=== PATIENT | female | born 1970 | race Caucasian/White ===

== ENCOUNTER 2018-10-24 05:26 | Day surgery (SDC) | payer MEDICARE, MEDICAID ==
[2018-10-22 13:36] LABS: BASOPHILS % (AUTO) 0.5 % (0-1); EOSINOPHILS # (AUTO) 0.2 X10'3 (0-0.9); EOSINOPHILS % (AUTO) 2.8 % (0-6); HEMATOCRIT 34.4 % (35.0-45.0); HEMOGLOBIN 11.1 g/dl (12.0-16.0); LYMPHOCYTES # (AUTO) 1.5 X10'3 (1.1-4.8); LYMPHOCYTES % (AUTO) 17.8 % (21-51); MEAN CORPUSCULAR HEMOGLOBIN 25.2 PG (27.0-31.0); MEAN CORPUSCULAR HGB CONC 32.3 g/dL (33.0-36.5); MEAN CORPUSCULAR VOLUME 77.9 FL (78-98); MEAN PLATELET VOLUME 7.4 FL (7.4-10.4); MONOCYTES # (AUTO) 0.7 X10'3 (0-0.9); MONOCYTES % (AUTO) 7.6 % (2-12); NEUTROPHILS # (AUTO) 6.2 X10'3 (1.8-7.7); NEUTROPHILS % (AUTO) 71.3 % (42-75); PLATELET COUNT 235 X10'3 (140-440); RED BLOOD COUNT 4.42 X10'6 (4.20-5.60); RED CELL DISTRIBUTION WIDTH 20.8 % (11.5-14.5); WHITE BLOOD COUNT 8.7 X10'3 (4.5-11.0)
[2018-10-22 13:40] LABS: CLARITY,URINE CLEAR (Clear); COLOR,URINE YELLOW (Yellow); GLUCOSE, URINE NEGATIVE (Neg); KETONES,URINE NEGATIVE (Neg); LEUKOCYTE ESTERASE ,URINE NEGATIVE (Neg); NITRITES, URINE NEGATIVE (Neg); OCCULT BLOOD,URINE TRACE-INTACT (Neg); PH,URINE 5.5 (4.8-8.0); PROTEIN,URINE NEGATIVE (Neg); UROBILINOGEN,URINE 0.2 E.U/dL (0.2-1.0)
[2018-10-22 13:42] LABS: UA COLLECTION TYPE NON-SPECIFIED
[2018-10-22 13:43] LABS: ALANINE AMINOTRANSFERASE 112 U/L (12-78); ALBUMIN 3.6 G/DL (3.4-5.0); ALBUMIN/GLOBULIN RATIO 0.9 (1.1-1.5); ALKALINE PHOSPHATASE 85 IU/L (46-116); ANION GAP 8 (8-16); ASPARTATE AMINO TRANSFERASE 121 U/L (10-37); BILIRUBIN,TOTAL 0.3 MG/DL (0.1-1.0); BLOOD UREA NITROGEN 10 MG/DL (7-18); BUN/CREATININE RATIO 14.9 (6.6-38.0); CALCIUM 8.9 MG/DL (8.5-10.1); CHLORIDE 104 MMOL/L (99-107); CREATININE 0.67 MG/DL (0.40-0.90); GLUCOSE 118 MG/DL (70-104); POTASSIUM 3.8 MMOL/L (3.5-5.1); SODIUM 139 MMOL/L (135-145); TOTAL CARBON DIOXIDE 26.8 MMOL/L (24-32); TOTAL PROTEIN 7.6 G/DL (6.4-8.2); eGFR > 90 ML/MIN
[2018-10-22 13:45] LABS: HCG SERUM QL NEGATIVE
[2018-10-22 13:46] LABS: PARTIAL THROMBOPLASTIN TIME 25 SECONDS (22-32)
[2018-10-22 13:52] LABS: BACTERIA,URINE 1+ /HPF (Neg); MUCUS STRANDS MODERATE /LPF (Neg); RBC,URINE NONE SEEN /HPF (0-2); SQUAMOUS EPITHELIAL CELL,UR MODERATE /LPF (FEW); WBC,URINE 0-4 /HPF (0-4)
[2018-10-22 18:23] LABS: PLATELET ESTIMATE NORMAL
[2018-10-22 18:25] LABS: ANISOCYTOSIS 3+; MICROCYTOSIS 1+
[2018-10-22 18:26] LABS: ELLIPTOCYTES FEW
[2018-10-24] VITALS (18 sets, daily range): BP systolic 112–139; BP diastolic 57–87
[~2018-10-24] VITALS: Ht 152.4 cm; Wt 78.9 kg
[~2018-10-24 05:26] MED LIST: DEXL60CA3 PO; GABA-532 PO; LORA1TAB PO; ringers solution, lacted 1,000 ML IV SCH
[2018-10-24] MEDS ORDERED: famotidine 20mg tablet PO ONE (05:30)
[2018-10-24] MEDS ORDERED: ceFOXitin sod/dextrose 2g/50ml 50 ML IV ONE (05:30)
[2018-10-24] MEDS ORDERED: scopolamine 1.5mg patch.TD72 TD ONE (05:30)
[2018-10-24] MEDS ORDERED: BUPIVAcaine/PF 2.5mg/ml (0.25%) 10ml vial ONE ×2 (06:52→08:11)
[2018-10-24] MEDS ORDERED: epiNEPHrine 1 mg/ml inj ONE (06:52)
[2018-10-24] MEDS ORDERED: BUPIVAcaine/PF 2.5 mg/ml (0.25%) 30ml vial ONE (06:52)
[2018-10-24] MEDS ORDERED: clindamycin phosphate 40gm vag cream ONE (06:52)
[2018-10-24] MEDS ORDERED: vasoPRESSIN 20 units/ml inj. ONE (06:53)
[2018-10-24] MEDS ORDERED: neomy sulf/polymyxin B sulf. GU irrigation 1ml amp IR ONE (06:54)
[2018-10-24] MEDS ORDERED: glycopyrrolate 0.2mg/ml inj ONE (07:20)
[2018-10-24] MEDS ORDERED: neostigmine methylsulfate 1 MG/ML 10ml vial ONE (07:20)
[2018-10-24] MEDS ORDERED: ondansetron/PF 4mg/2ml inj ONE (07:20)
[2018-10-24] MEDS ORDERED: sevoflurane 250ml liquid IH ONE (07:20)
[2018-10-24] MEDS ORDERED: aprepitant 40mg capsule PO ONE (07:24)
[2018-10-24] MEDS ORDERED: fentaNYL /PF 50mcg/ml 5ml ampule ONE (07:28)
[2018-10-24] MEDS ORDERED: midazolam 2 mg/2 ml injection ONE (07:28)
[2018-10-24] MEDS ORDERED: dexamethasone sod phosphate 4mg/ml inj. ONE (07:29)
[2018-10-24] MEDS ORDERED: propofol inj 20 ML IV ONE (07:29)
[2018-10-24] MEDS ORDERED: LIDOcaine 2% (20mg/ml) 5ml vial ONE (07:29)
[2018-10-24] MEDS ORDERED: rocuronium 10mg/ml inj IV ONE ×2 (07:30→09:16)
[2018-10-24] MEDS ORDERED: ringers solution, lacted 1,000 ML IV SCH (08:37)
[2018-10-24] MEDS ORDERED: proCHLORperazine 10 MG/2 ml inj IV PRN (08:40)
[2018-10-24] MEDS ORDERED: ondansetron/PF 4mg/2ml inj IV PRN (08:40)
[2018-10-24] MEDS ORDERED: meperidine/PF 25mg/ml syringe IV PRN ×2 (08:40)
[2018-10-24] MEDS ORDERED: morphine 4 MG/ML inj SYRINge IV PRN ×2 (08:40)
[2018-10-24] MEDS ORDERED: ketorolac trometh. 30mg/ml inj. ONE (09:16)
[2018-10-24] MEDS: ringers solution, lacted 1,000 ML IV SCH ×2 (10:06→18:06)
[2018-10-24] MEDS ORDERED: metoclopramide 5 mg/ml inj IV PRN (10:10)
[2018-10-24] MEDS ORDERED: HYDROcodone/acetaminophen 10/325mg tab PO PRN (10:10)
[2018-10-24] MEDS ORDERED: diphenhydrAMINE 50 mg/ml inj IV PRN (10:10)
[2018-10-24] MEDS ORDERED: temazepam 15mg capsule PO PRN (10:10)
[2018-10-24] MEDS ORDERED: normal saline 500ml IV soln 500 ML IV PRN (10:10)
[2018-10-24] MEDS ORDERED: LORazepam 2 mg/ml vial IV PRN (10:10)
[2018-10-24] MEDS ORDERED: magnesium hydroxide 30ml (MOM) UD suspension PO PRN (10:10)
--- NOTE | 2018-10-24 10:10 | NUR ---
Received from OR via BED, accompanied by Anesthesiologist DR COYLE and report given by Anesthesiologist. PT VERY DROWSY, NO S/S OF DISTRESS/DISCOMFORT, ABDOMEN W/3 LAP SITES W/DERMABOND CDI, CORA PAD IN PLACE CDI, CHAND CATHETER TO GRAVITY DRAINAGE W/YELLOW URINE IN TUBING. Addendum: 10/24/18 at 1052 by Sophia Stewart RN Amended: Links added.
[2018-10-24] MEDS: meperidine/PF 25mg/ml syringe IV PRN ×2 (10:35→11:01)
[2018-10-24] MEDS: ketorolac trometh. 30mg/ml inj. IV PRN ×3 (10:35→23:35)
--- NOTE | 2018-10-24 11:30 | NUR ---
Report called to receiving nurse. Transferred via BED, 2 BAGS OF PERSONAL Belongings SENT W/PT TO ROOM 344B, RECEIVING RN AT BEDSIDE TO RECEIVE PT, BLL, CALL LIGHT GIVEN, SIDE RAILS UP X 2, FAMILY AT BEDSIDE. Special Issues communicated to receiving nurse. YES. Addendum: 10/24/18 at 1154 by Sophia Stewart RN Amended: Links added.
[2018-10-24] MEDS ORDERED: LORazepam 1 MG tablet PO PRN (12:00)
[2018-10-24] MEDS: HYDROcodone/acetaminophen 10/325mg tab PO PRN ×3 (12:18→22:29)
[2018-10-24] MEDS: ondansetron/PF 4mg/2ml inj IV PRN (12:26)
--- NOTE | 2018-10-24 13:50 | NUR ---
Patient was started on clear liquid diet post op, tolerated well. Patient is now asking for regular food. Patient did not want to try full liquid diet first before jumping to regular food. Patient states "Dr. Harris said I can have regular food!" Patient claimed that she already passing gas since she got here after surgery and insisted she wanted regular food. Late tray for lunch requested from the dietary. Advised patient to take it easy when she eat the regular food and to stop eating when she started being very nauseous and throw up
--- NOTE | 2018-10-24 18:49 | NUR ---
Problems reprioritized. Patient report given, questions answered & plan of care reviewed with Jessy ROCHA.
[2018-10-24] MEDS: gabapentin 300mg capsule PO SCH (19:56)
[2018-10-24] MEDS: docusate sod 100mg capsule PO SCH (19:56)
[2018-10-25] VITALS: BP 135/60
[2018-10-25] MEDS: ringers solution, lacted 1,000 ML IV SCH ×2 (02:06→10:06)
[2018-10-25] MEDS: ondansetron/PF 4mg/2ml inj IV PRN (03:05)
[2018-10-25] MEDS: HYDROcodone/acetaminophen 10/325mg tab PO PRN ×3 (03:08→12:56)
[2018-10-25 05:23] LABS: BASOPHILS % (AUTO) 0.1 % (0-1); EOSINOPHILS % (AUTO) 0 % (0-6); HEMATOCRIT 30.7 % (35.0-45.0); LYMPHOCYTES # (AUTO) 0.8 X10'3 (1.1-4.8); MEAN CORPUSCULAR HEMOGLOBIN 25.2 PG (27.0-31.0); MEAN CORPUSCULAR HGB CONC 32.5 g/dL (33.0-36.5); MEAN CORPUSCULAR VOLUME 77.5 FL (78-98); MEAN PLATELET VOLUME 7.3 FL (7.4-10.4); MONOCYTES # (AUTO) 0.7 X10'3 (0-0.9); MONOCYTES % (AUTO) 5.7 % (2-12); NEUTROPHILS # (AUTO) 11.6 X10'3 (1.8-7.7); NEUTROPHILS % (AUTO) 88.2 % (42-75); PLATELET COUNT 176 X10'3 (140-440); RED BLOOD COUNT 3.97 X10'6 (4.20-5.60); RED CELL DISTRIBUTION WIDTH 20.2 % (11.5-14.5); WHITE BLOOD COUNT 13.1 X10'3 (4.5-11.0)
[2018-10-25 05:32] LABS: ANION GAP 10 (8-16); BLOOD UREA NITROGEN 8 MG/DL (7-18); BUN/CREATININE RATIO 8.8 (6.6-38.0); CALCIUM 7.7 MG/DL (8.5-10.1); CHLORIDE 101 MMOL/L (99-107); CREATININE 0.91 MG/DL (0.40-0.90); GLUCOSE 167 MG/DL (70-104); POTASSIUM 3.9 MMOL/L (3.5-5.1); SODIUM 135 MMOL/L (135-145); eGFR 66 ML/MIN
--- NOTE | 2018-10-25 06:19 | NUR ---
Problems reprioritized. Patient report given, questions answered & plan of care reviewed with Elsy ROCHA. Addendum: 10/25/18 at 0619 by Jessy Waters RN Amended: Links added.
--- NOTE | 2018-10-25 06:57 | NUR ---
DR GRIJALVA ROUNDED. PUT IN D/C ORDERS BUT IS WAITING TO SEE HOW PT VOIDS. WILL NOT BE DISCHARGED OUT OF SYSTEM OR ROOM READY IN 2 HOURS
--- NOTE | 2018-10-25 06:57 | NUR ---
Patient in room [facility]. I have received report from halina garcia and had the opportunity to ask questions and assume patient care.
[2018-10-25 07:00] VITALS: BP 148/76
[2018-10-25] MEDS ORDERED: pantoprazole 40mg Tablet.DR PO SCH (07:30)
[2018-10-25] MEDS: enoxaparin 40mg/0.4ml syringe SQ SCH ×2 (07:46→07:59)
[2018-10-25] MEDS: gabapentin 300mg capsule PO SCH (07:47)
[2018-10-25] MEDS: docusate sod 100mg capsule PO SCH (07:47)
[2018-10-25] MEDS: ketorolac trometh. 30mg/ml inj. IV PRN (12:56)
== END 2018-10-25 13:40 | disposition home or self-care (01) ==
LOC: PAS 05:26 → SUR 3N 10:09 → PAS 10-25 13:40
PROVIDERS: ATTEND Obstetrics & Gynecology Obstetrics
DX: D25.1 Intramural leiomyoma of uterus (principal); N80.0 Endometriosis of uterus; N80.2 Endometriosis of fallopian tube; F41.9 Anxiety disorder, unspecified; D64.9 Anemia, unspecified; D32.9 Benign neoplasm of meninges, unspecified; Z79.899 Other long term (current) drug therapy; Z88.5 Allergy status to narcotic agent; Z72.89 Other problems related to lifestyle; F17.210 Nicotine dependence, cigarettes, uncomplicated
CPT/HCPCS: 36415; 58552; 71046; 80048; 80053; 81001; 82948; 84703; 85025; 85610; 85730; 86885; 86900; 86901; 87081; J0171; J0694; J1100; J1885; J2001; J2175; J2250; J2405; J2704; J3010; J3490; J7120; J8501; 88307; A4314; A4618; A7000; G0378; J1650; J2710

== ENCOUNTER 2019-03-12 09:15 | Emergency (ER) | payer MEDICARE, MEDICAID ==
[~2019-03-12] VITALS: Ht 152.4 cm; Wt 72.7 kg
[~2019-03-12 09:15] MED LIST changes: -ringers solution, lacted 1,000 ML IV SCH
[2019-03-12] MEDS ORDERED: morphine 4 MG/ML inj SYRINge IV ONE (09:30)
[2019-03-12] MEDS ORDERED: ondansetron/PF 4mg/2ml inj IV ONE ×2 (09:35→09:45)
[2019-03-12] MEDS ORDERED: normal saline 1000ML IV soln IVB ONE (09:45)
[2019-03-12] MEDS ORDERED: morphine 4 MG/ML inj SYRINge IV PRN (09:45)
[2019-03-12 09:47] LABS: BASOPHILS # (AUTO) 0.1 X10'3 (0-0.2); BASOPHILS % (AUTO) 0.8 % (0-1); EOSINOPHILS # (AUTO) 0.2 X10'3 (0-0.9); EOSINOPHILS % (AUTO) 1.8 % (0-6); HEMATOCRIT 38.8 % (35.0-45.0); HEMOGLOBIN 12.5 g/dl (12.0-16.0); LYMPHOCYTES # (AUTO) 2.3 X10'3 (1.1-4.8); LYMPHOCYTES % (AUTO) 20.7 % (21-51); MEAN CORPUSCULAR HEMOGLOBIN 23.9 PG (27.0-31.0); MEAN CORPUSCULAR HGB CONC 32.1 g/dL (33.0-36.5); MEAN CORPUSCULAR VOLUME 74.4 FL (78-98); MEAN PLATELET VOLUME 7.2 FL (7.4-10.4); MONOCYTES # (AUTO) 0.8 X10'3 (0-0.9); MONOCYTES % (AUTO) 7.2 % (2-12); NEUTROPHILS # (AUTO) 7.8 X10'3 (1.8-7.7); NEUTROPHILS % (AUTO) 69.5 % (42-75); PLATELET COUNT 238 X10'3 (140-440); RED BLOOD COUNT 5.22 X10'6 (4.20-5.60); RED CELL DISTRIBUTION WIDTH 20.8 % (11.5-14.5); WHITE BLOOD COUNT 11.2 X10'3 (4.5-11.0)
[2019-03-12] MEDS ORDERED: ketorolac trometh. 30mg/ml inj. IV ONE (09:55)
[2019-03-12 09:57] LABS: ALANINE AMINOTRANSFERASE 56 U/L (12-78); ALKALINE PHOSPHATASE 82 IU/L (46-116); ANION GAP 10 (8-16); ASPARTATE AMINO TRANSFERASE 62 U/L (10-37); BILIRUBIN,TOTAL 0.3 MG/DL (0.1-1.0); BLOOD UREA NITROGEN 9 MG/DL (7-18); BUN/CREATININE RATIO 10.6 (6.6-38.0); CALCIUM 8.7 MG/DL (8.5-10.1); CHLORIDE 104 MMOL/L (99-107); CREATININE 0.85 MG/DL (0.40-0.90); GLUCOSE 134 MG/DL (70-104); LIPASE 198 U/L (73-393); POTASSIUM 3.9 MMOL/L (3.5-5.1); SODIUM 140 MMOL/L (135-145); TOTAL CARBON DIOXIDE 25.6 MMOL/L (24-32); eGFR 71 ML/MIN
[2019-03-12] MEDS ORDERED: HYDROmorphone 1 mg/ml syringe IV ONE (10:55)
[2019-03-12 12:04] LABS: ANISOCYTOSIS 3+; MICROCYTOSIS 1+; PLATELET ESTIMATE NORMAL
[2019-03-12 12:05] LABS: POLYCHROMASIA FEW; TARGET CELLS FEW
[2019-03-12 12:06] LABS: ELLIPTOCYTES 1+; SPHEROCYTES 1+
[2019-03-12] MEDS ORDERED: proCHLORperazine 10 MG/2 ml inj IV ONE (12:20)
[2019-03-12] MEDS ORDERED: HYDR-4384 PO (12:22)
[2019-03-12] MEDS ORDERED: PROM12.512 PO (12:22)
[2019-03-12 12:40] VITALS: BP 132/76
[2019-03-12 12:47] LABS: URINE HCG NEGATIVE (NEG)
[2019-03-12 12:49] LABS: COLOR,URINE YELLOW (Yellow); GLUCOSE, URINE NEGATIVE (Neg); KETONES,URINE TRACE mg/dl (Neg); LEUKOCYTE ESTERASE ,URINE NEGATIVE (Neg); NITRITES, URINE NEGATIVE (Neg); OCCULT BLOOD,URINE NEGATIVE (Neg); PROTEIN,URINE TRACE mg/dl (Neg); UROBILINOGEN,URINE 0.2 E.U/dL (0.2-1.0)
[2019-03-12 12:56] LABS: CLARITY,URINE SLIGHTLY CLOUDY (Clear); UA COLLECTION TYPE STRAIGHT CATH
[2019-03-12 13:00] LABS: AMORPHOUS PHOSPHATES 1+; BACTERIA,URINE NONE SEEN /HPF (Neg); MUCUS STRANDS MANY /LPF (Neg); RBC,URINE NONE SEEN /HPF (0-2); SQUAMOUS EPITHELIAL CELL,UR FEW /LPF (FEW); WBC,URINE 0-4 /HPF (0-4)
[2019-03-12 13:01] LABS: SPERM FEW /HPF
== END 2019-03-12 12:41 | disposition home or self-care (01) ==
LOC: ER 09:15
DX: N83.202 Unspecified ovarian cyst, left side (principal); R11.10 Vomiting, unspecified; R10.32 Left lower quadrant pain; I10 Essential (primary) hypertension; Z90.49 Acquired absence of other specified parts of digestive tract; Z90.710 Acquired absence of both cervix and uterus; Z88.8 Allergy status to other drugs, medicaments and biological substances; Z79.899 Other long term (current) drug therapy
CPT/HCPCS: 36415; 74176; 76856; 80053; 81001; 81025; 83690; 85025; 96361; 96374; 96375; 99284; J0780; J1170; J1885; J2270; J2405; J7030